=== PATIENT | female | born 1955 | race African-American/Black ===

== ENCOUNTER 2018-12-10 11:05 | Emergency (ER) | payer MEDICARE ==
[2018-12-10 11:14] VITALS: BP 148/77
[2018-12-10] MEDS ORDERED: KETOROLAC TROMETHAMINE 60 MG/2 ML SDV IM ONE (11:23)
--- NOTE | 2018-12-10 11:29 | ER Document Report ---
HPI - HPI Time Seen by Provider: 12/10/18 11:15 Pain Level: 3 Notes: Patient is a 63-year-old female with a history of hypertension, hypercholesterolemia, chronic back/knee/leg pains who presents complaining of left buttock pain and pain into her left lateral thigh down to her knee. Patient states that this pain has been ongoing for the past few months, but recurred yesterday when she made a "wrong turn." Patient states that she only has pain when she stands up and starts walking. Patient states that the pain goes away when she is sitting down. Patient takes oxycodone/Percocet chronically for her pain. She is able to eat and drink without difficulty. She is urinating normally and having normal bowel movements. Denies drug allergies. Denies any history of diabetes, kidney disease, or dialysis. Patient has had two total knee replacements. No history of spinal abscess or IV drug abuse. Denies any prolonged immobilization, distance travel, recent surgery/trauma, personal cancer history, hormone use, smoking, or previous DVT/PE. Denies any headache, fever, neck pain, URI, sore throat, chest pain, palpitations, syncope, cough, shortness of breath, wheeze, dyspnea, abdominal pain, nausea/vomiting/diarrhea, urinary retention, dysuria, hematuria, loss of control of bowel or bladder, numbness/tingling, saddle anesthesia, muscle paralysis/weakness, or rash. - ROS Systems Reviewed and Negative: Yes All other systems reviewed and negative Past Medical History - Social History Smoking Status: Never Smoker Family History: Reviewed & Not Pertinent Vertical Provider Document - CONSTITUTIONAL Agree With Documented VS: Yes Notes: PHYSICAL EXAMINATION: GENERAL: Well-appearing, well-nourished and in no acute distress. LUNGS: Breath sounds clear to auscultation bilaterally and equal. No wheezes rales or rhonchi. HEART: Regular rate and rhythm without murmurs, rubs, gallops. ABDOMEN: Soft, nontender, nondistended abdomen. No guarding, no rebound. No masses appreciated. Normal bowel sounds present. No CVA tenderness bilaterally. No pulsatile mass Musculoskeletal: LE's b/l: FROM to passive/active. Strength 5+/5. No deficits noted. No bony tenderness of extremities. + mild tenderness left troch bursa and to the lateral thigh to palp. No medial tenderness. Augustine neg b/l. No LE asymmetry. N/V intact distal. Back: FROM to passive/active. Strength 5+/5. No vertebral point tenderness, stepoffs, or deformities. No other bony tenderness, erythema, swelling, or ecchymosis. SLR negative b/l. + mild tenderness to the L-paraspinal mm b/l. Mild spasming. + left SI jt tenderness. No foot drop Extremities: No cyanosis, clubbing, or edema b/l. Peripheral pulses 2+. Capillary refill less than 2 seconds. NEUROLOGICAL: Normal speech, normal gait with assistance by quad-cane. Normal sensory, motor exams. Reflexes 2+ b/l. PSYCH: Normal mood, normal affect. SKIN: Warm, Dry, normal turgor, no rashes or lesions noted. - INFECTION CONTROL TRAVEL OUTSIDE OF THE [place] IN LAST 30 DAYS: No Course - Re-evaluation Re-evalutation: 12/10/18 11:28 Patient is an afebrile, well-hydrated, 63-year-old female who presents to the ED with left buttock/troch bursa/lateral thigh pain. Pt has chronic issues with her back/knees/and legs in general. She is on chronic narcotics for pain control. Vitals are acceptable without any significant tachycardia, tachypnea, or hypoxia. PE is otherwise unremarkable for any neurovascular compromise, obvious tendon/ligament rupture, obvious fracture/dislocation, DVT, septic joint. Pt given toradol IM. Patient is nontoxic-appearing. Patient is able to ambulate and weight-bear. No other labs or imaging warranted at this time based on H&P. Rx for lidoderm. Conservative measures otherwise for symptoms. Recheck with your PCM in 3-5 days. Consider consult orthopedics. Return to the ED with any worsening/concerning symptoms otherwise as reviewed in discharge. Patient is in agreement. - Vital Signs Vital signs: Temp Pulse Resp BP Pulse Ox 98.0 F 62 16 148/77 H 97 12/10/18 11:13 12/10/18 11:13 12/10/18 11:13 12/10/18 11:13 12/10/18 11:13 Discharge - Discharge Clinical Impression: Left leg pain Condition: Stable Disposition: HOME, SELF-CARE Additional Instructions: Rest, Ice, Compression, Elevation Tylenol/ibuprofen as needed Light stretches daily Strength exercises as able Moist heat and massage may help F/u with your PCP in 3-5 days for a recheck Consider consult(s) with Orthopedics/physical therapy for ongoing/worsening symptoms Return to the ED with any worsening symptoms and/or development of fever, headache, chest pain, palpitations, syncope, shortness of breath, trouble breathing, abdominal pain, n/v/d, muscle weakness/paralysis, numbness/tingling, swelling, redness, or other worsening symptoms that are concerning to you. Prescriptions: Lidocaine [Lidoderm 5% (700 mg) Transdermal Patch] 1 patch TP DAILY #10 adh..patch Forms: Elevated Blood Pressure Referrals: [facility] (LINK) [Provider Group] - Follow up as needed
== END 2018-12-10 11:36 | disposition home or self-care (01) ==
LOC: ER 11:05
DX: M79.605 Pain in left leg (principal); M25.562 Pain in left knee; M79.652 Pain in left thigh; I10 Essential (primary) hypertension; M54.9 Dorsalgia, unspecified; G89.29 Other chronic pain
CPT/HCPCS: 99283; 96372; J1885